=== PATIENT | male | born 1975 | race Caucasian/White ===

== ENCOUNTER 2018-12-26 17:51 | Emergency (ER) | payer BC ==
[2018-12-26 17:56] VITALS: BP 158/88; PULSE 78; RESP 18; TEMP 97.6
[2018-12-26] MEDS ORDERED: KETOROLAC 30 MG/ML 1 ML VIAL IM STA (18:11)
[2018-12-26] MEDS ORDERED: AMOXIC-POT CLAV 875MG STARTER 2 EACH TABLET PO STA (18:12)
--- NOTE | 2018-12-26 18:16 | ED ---
ENT HPI - General Chief complaint: ENT Stated complaint: Sinus Infection Time Seen by Provider: 12/26/18 18:03 Source: patient Mode of arrival: ambulatory Limitations: no limitations - History of Present Illness Initial comments: 43-year-old male presenting today for chief complaint of sinus pressure. Patient states he's had a sinus infection in the past, he states he has not had one in years however this feels identical. He minutes to tenderness to patient Sinuses as well as increased pain and pressure with downward head motions. Patient states he began to develop tooth pain over the past 2 days. Patient denies any dental pain prior to the onset. Patient has a fever, chills, night sweats. Patient states he does have an occasional headache. Denies some onset or worst headache of his life. Remaining review of systems negative, Patient denies any shortness of breath, chest pain, back pain, abdominal pain, nausea or vomiting, numbness or tingling, dysuria or hematuria, constipation or diarrhea, headaches or visual changes, or any other complaints. - Related Data Previous Rx's Medication Instructions Recorded Amoxicillin/Potassium Clav 1 tab PO Q12HR 10 Days #20 tab 12/26/18 [Augmentin 875-125 Tablet] Oxymetazoline 0.05% Nasl [place] 2 spray EA NOSTRIL BID 3 Days #1 12/26/18 [Afrin 0.05% Nasal [place]] bottle Allergies Allergy/AdvReac Type Severity Reaction Status Date / Time No Known Allergies Allergy Verified 12/26/18 17:56 Review of Systems ROS Statement: Those systems with pertinent positive or pertinent negative responses have been documented in the HPI. ROS Other: All systems not noted in ROS Statement are negative. Past Medical History Past Medical History: No Reported History History of Any Multi-Drug Resistant Organisms: None Reported Past Surgical History: No Surgical Hx Reported Past Psychological History: No Psychological Hx Reported Smoking Status: Current every day smoker Past Alcohol Use History: Occasional Past Drug Use History: None Reported General Exam - General Exam Comments Initial Comments: General: The patient is awake and alert, in no distress, and does not appear acutely ill. Eye: +3 mm pupils are equal, round and reactive to light, extra-ocular movements are intact. No nystagmus. There is normal conjunctiva bilaterally. No signs of icterus. No photophobia Ears, nose, mouth and throat: There are moist mucous membranes and no oral lesions. Oropharynx was not erythematous there is no tonsillar enlargement exudates or lesions. Uvula midline. Tympanic membranes are not erythematous or is no effusions bulging or retraction. No tenderness to palpation of the mastoid. No anterior cervical lymphadenopathy. Rhinorrhea, clear and bilateral nares. No tripoding, no drooling. Pain to palpation of the maxillary sinus b/l. Neck: The neck is supple, there is no tenderness or JVD. No nuchal rigidity negative Brudzinski and Kernig Cardiovascular: There is a regular rate and rhythm. No murmur, rub or gallop is appreciated. Respiratory: Lungs are clear to auscultation, respirations are non-labored, breath sounds are equal. No wheezes, stridor, rales, or rhonchi. No retractions or abdominal breathing. Gastrointestinal: Soft, non-distended, non-tender abdomen without masses or organomegaly noted. There is no rebound or guarding present. Bowel sounds are unremarkable. Musculoskeletal: Normal ROM, no tenderness. Strength 5/5. Sensation intact. Radial pulses equal bilaterally 2+. Neurological: A&O x 3. CN II-XII intact, There are no obvious motor or sensory deficits. Coordination appears grossly intact. Speech appears normal, no muffling. Skin: Skin is warm and dry and no rashes or lesions are noted. No extremity e edd Psychiatric: Cooperative Limitations: no limitations Course Vital Signs 12/26/18 17:54 Temperature 97.6 F Pulse Rate 78 Respiratory 18 Rate Blood Pressure 158/88 O2 Sat by Pulse 97 Oximetry Medical Decision Making - Medical Decision Making Patient with history and physical examination findings concerning for sinusitis. Will treat with Augmentin. Patient is agreeable plan of discharge. Patient is to follow-up with primary care provider. Patient aware of return parameters. Discussed case with him provider prior to patient's discharge. Agreeable with plan and discharged. Disposition Clinical Impression: Sinusitis Disposition: HOME SELF-CARE Condition: Good Instructions (If sedation given, give patient instructions): Sinusitis (ED) Additional Instructions: Please use medication as discussed. Please follow-up with family doctor in the next 2 days. Please return to emergency room if the symptoms increase or worsen or for any other concerns. Prescriptions: Oxymetazoline 0.05% Nasl [place] [Afrin 0.05% Nasal [place]] 2 spray EA NOSTRIL BID 3 Days #1 bottle Amoxicillin/Potassium Clav [Augmentin 775-125 Tablet] 1 tab PO Q12HR 10 Days #20 tab Is patient prescribed a controlled substance at d/c from ED?: No Referrals: None,Stated [Primary Care Provider] - 1-2 days [facility] [NON-STAFF] - 1-2 days Time of Disposition: 18:15
== END 2018-12-26 18:23 | disposition home or self-care (01) ==
LOC: EC 17:51
DX: J32.9 Chronic sinusitis, unspecified (principal); F17.200 Nicotine dependence, unspecified, uncomplicated
CPT/HCPCS: 96372; 99283

== ENCOUNTER 2018-12-27 20:51 | Emergency (ER) | payer BC ==
[2018-12-27 20:56] VITALS: BP 151/88; PULSE 73; RESP 18; TEMP 98.2
[2018-12-27] MEDS ORDERED: diphenhydrAMINE 50 MG/ML 1 ML VIAL IM STA (21:07)
[2018-12-27] MEDS ORDERED: methylPREDNISolone SOD SUCCI 125 MG/2 ML VIAL IM ONE (21:07)
[2018-12-27] MEDS ORDERED: LORATADINE-PSEUDOEPH 5-120 MG 1 EACH TAB.ER.12H PO STA (21:16)
--- NOTE | 2018-12-27 21:16 | ED ---
ENT HPI - General Source: family, RN notes reviewed, old records reviewed Mode of arrival: ambulatory Limitations: no limitations <Rupal Anders - Last Filed: 12/27/18 21:08> <Connie Dasilva - Last Filed: 12/27/18 22:10> - General Chief complaint: ENT Stated complaint: Sinus issue-revisit Time Seen by Provider: 12/27/18 20:58 - History of Present Illness Initial comments: 43-year-old male presents the x-rays from today was 2. sinus congestion. Patient reports he feels a pressure on the right side of his sinuses. He states that today he feels like he cannot sleep due to the pain. Patient states whenever he lays packets worse. Patient states that he has had issues with sinusitis over the past few years. He seems to be more significant over the right side. Patient states that he's had 2 doses of antibiotic. Patient reports that he has had no fevers or chills. He reports he's had no significant drainage chest pressure with sinus. Patient states that he did attempt to use a Neti pot 2 days ago. (Rupal Anders) - Related Data Previous Rx's Medication Instructions Recorded Amoxicillin/Potassium Clav 1 tab PO Q12HR 10 Days #20 tab 12/26/18 [Augmentin 875-125 Tablet] Oxymetazoline 0.05% Nasl [place] 2 spray EA NOSTRIL BID 3 Days #1 12/26/18 [Afrin 0.05% Nasal [place]] bottle Loratadine-Pseudoeph 10-240 mg 1 each PO DAILY #15 tab 12/27/18 [Claritin-D 24 Hr] diphenhydrAMINE [Benadryl] 25 mg PO QID #20 capsule 12/27/18 methylPREDNISolone Dose Pack 4 mg PO DIRECTED #21 package 12/27/18 [Medrol Dose Pack] Allergies Allergy/AdvReac Type Severity Reaction Status Date / Time No Known Allergies Allergy Verified 12/27/18 21:08 Review of Systems ROS Other: All systems not noted in ROS Statement are negative. <Rupal Anders - Last Filed: 12/27/18 21:08> ROS Other: All systems not noted in ROS Statement are negative. <Connie Dasilva - Last Filed: 12/27/18 22:10> ROS Statement: Those systems with pertinent positive or pertinent negative responses have been documented in the HPI. Past Medical History Past Medical History: No Reported History History of Any Multi-Drug Resistant Organisms: None Reported Past Surgical History: No Surgical Hx Reported Past Psychological History: No Psychological Hx Reported Smoking Status: Current every day smoker Past Alcohol Use History: Occasional Past Drug Use History: None Reported <Rupal Anders - Last Filed: 12/27/18 21:08> General Exam Limitations: no limitations General appearance: alert, in no apparent distress Head exam: Present: atraumatic, normocephalic, normal inspection Eye exam: Present: normal appearance, PERRL, EOMI. Absent: scleral icterus, conjunctival injection, periorbital swelling ENT exam: Present: normal exam, normal oropharynx, mucous membranes moist, other (Right-sided maxillary sinus tenderness.) Neck exam: Present: normal inspection. Absent: tenderness, meningismus, lymph adenopathy Respiratory exam: Present: normal lung sounds bilaterally. Absent: respiratory distress, wheezes, rales, rhonchi, stridor Cardiovascular Exam: Present: regular rate, normal rhythm, normal heart sounds. Absent: systolic murmur, diastolic murmur, rubs, gallop, clicks GI/Abdominal exam: Present: soft, normal bowel sounds. Absent: distended, tenderness, guarding, rebound, rigid Extremities exam: Present: normal inspection, full ROM, normal capillary refill. Absent: tenderness, pedal edema, joint swelling, calf tenderness Back exam: Present: normal inspection Neurological exam: Present: alert, oriented X3, CN II-XII intact Psychiatric exam: Present: normal affect, normal mood Skin exam: Present: warm, dry, intact, normal color. Absent: rash <Rupal Anders - Last Filed: 12/27/18 21:08> - General Exam Comments Initial Comments: This is a 43-year-old male. Alert and oriented. Patient appears in no significant distress. (Rupal Anders) Course Vital Signs 12/27/18 20:52 Temperature 98.2 F Pulse Rate 73 Respiratory 18 Rate Blood Pressure 151/88 O2 Sat by Pulse 96 Oximetry Medical Decision Making <Rupal Anders - Last Filed: 12/27/18 21:08> <Connie Dasilva - Last Filed: 12/27/18 22:10> - Medical Decision Making 43-year-old male presents emergency Department today with complaints of right- sided sinus pressure for the past 4 days. Patient states he's had increased pain especially with laying backward. He states he feels like he is not able to sleep. He has not taken any decongestants medication or Benadryl. I offered the Patient on until IM benadryl and solumedrol for inflammation. We'll discharge the Patient with adequate steroids to his regimen. I discussed the Patient needs to use a decongestant or Benadryl to help dry the fluid within the sinuses. Patient agrees treatment plan will comply. Return parameters were discussed. (Rupal Anders) I was available for consultation in the emergency department. The history and physical exam were done by the midlevel provider. I was consulted for this patient's care. I reviewed the case with the midlevel provider and based on their presentation of the patient, I agree with the assessment, medical decision making and plan of care as documented. (Connie Dasilva) Disposition Is patient prescribed a controlled substance at d/c from ED?: No Time of Disposition: 21:13 <Rupal Anders - Last Filed: 12/27/18 21:08> <Connie Dasilva - Last Filed: 12/27/18 22:10> Clinical Impression: Sinusitis Disposition: HOME SELF-CARE Condition: Good Instructions (If sedation given, give patient instructions): Sinusitis (ED) Additional Instructions: Patient advised to use decongestant medicine. He is Benadryl help with this as he was sleeping decongestant. Patient should follow-up with PCP and return as appropriate specialist. Continue the antibiotic as prescribed and add the steroids for inflammation. Prescriptions: diphenhydrAMINE [Benadryl] 25 mg PO QID #20 capsule Loratadine-Pseudoeph 10-240 mg [Claritin-D 24 Hr] 1 each PO DAILY #15 tab methylPREDNISolone Dose Pack [Medrol Dose Pack] 4 mg PO DIRECTED #21 package Referrals: None,Stated [Primary Care Provider] - 1-2 days Brandon Faustin MD [STAFF PHYSICIAN] - 1-2 days
== END 2018-12-27 21:59 | disposition home or self-care (01) ==
LOC: EC 20:51
DX: J32.9 Chronic sinusitis, unspecified (principal); F17.200 Nicotine dependence, unspecified, uncomplicated
CPT/HCPCS: 99283; 96372 ×2; J1200; J2930